=== PATIENT | male | born 1995 | race African-American/Black ===

== ENCOUNTER 2017-07-16 21:33 | Emergency (ER) | payer SELFPAY ==
[2017-07-16 23:08] VITALS: BP 000/00
== END 2017-07-16 23:06 | disposition left against medical advice (07) ==
LOC: ED 21:33
DX: R50.9 Fever, unspecified (principal); Z53.21 Procedure and treatment not carried out due to patient leaving prior to being seen by health care provider

== ENCOUNTER 2017-09-30 12:21 | Emergency (ER) | payer SELFPAY ==
[2017-09-30] MEDS ORDERED: Penicillin VK TAB* 250 MG PO ONE (14:04)
--- NOTE | 2017-09-30 14:04 | ED ---
Throat Pain/Nasal Congestion - HPI Summary HPI Summary: 22-year-old male presents with dental pain for the past day. He states he chipped the tooth many years ago. He states he intermittently has some pain there. He states area started to bleed this morning. He denies any pus from the area. He denies any fevers. She denies any chest pressures or shortness of breath. He denies any difficulty swallowing. States that pain is 10 out of 10. Has taken Tylenol ibuprofen without relief. He has a dentist appointment in 2 days. - History of Current Complaint Chief Complaint: EDDentalPain Time Seen by Provider: 09/30/17 13:38 - Allergies/Home Medications Allergies/Adverse Reactions: Allergies Allergy/AdvReac Type Severity Reaction Status Date / Time No Known Allergies Allergy Verified 09/30/17 12:28 PMH/Surg Hx/FS Hx/Imm Hx Endocrine/Hematology History: Denies: Hx Anticoagulant Therapy Cardiovascular History: Denies: Hx Myocardial Infarction Infectious Disease History: No Infectious Disease History: Denies: Traveled Outside the [place] in Last 30 Days - Family History Known Family History: Positive: Hypertension - Social History Alcohol Use: Occasionally Substance Use Type: Reports: None Smoking Status (MU): Unknown if Ever Smoked Review of Systems Negative: Fever Positive: Dental Pain Negative: Chest Pain Negative: Shortness Of Breath All Other Systems Reviewed And Are Negative: Yes Physical Exam Triage Information Reviewed: Yes Vital Signs On Initial Exam: Initial Vitals Temp Pulse Resp BP Pulse Ox 97.5 F 60 20 127/76 100 09/30/17 12:28 09/30/17 12:28 09/30/17 12:28 09/30/17 12:28 09/30/17 12:28 Vital Signs Reviewed: Yes Appearance: Positive: Well-Appearing Skin: Positive: Warm, Dry Head/Face: Positive: Normal Head/Face Inspection Eyes: Positive: Normal, EOMI, SABA, Conjunctiva Clear ENT: Positive: Normal ENT inspection, Pharynx normal, TMs normal Respiratory/Lung Sounds: Positive: Clear to Auscultation, Breath Sounds Present Cardiovascular: Positive: Normal, RRR Abdomen Description: Positive: Nontender, Soft Bowel Sounds: Positive: Present Musculoskeletal: Positive: Normal Neurological: Positive: Normal Psychiatric: Positive: Normal Diagnostics - Vital Signs Vital Signs Temp Pulse Resp BP Pulse Ox 09/30/17 12:28 97.5 F 60 20 127/76 100 - Laboratory Lab Statement: Any lab studies that have been ordered have been reviewed, and results considered in the medical decision making process. EENT Course/Dx - Course Course Of Treatment: 22-year-old male presents with dental pain for the past day. He states he chipped the tooth many years ago. He states he intermittently has some pain there. He states area started to bleed this morning. He denies any pus from the area. He denies any fevers. She denies any chest pressures or shortness of breath. He denies any difficulty swallowing. States that pain is 10 out of 10. Has taken Tylenol ibuprofen without relief. He has a dentist appointment in 2 days. on exam has what appears to be draining abscess at tooth 24. - Differential Diagnoses Differential Diagnoses: Dental Abscess, Dental Caries, Fractured Tooth - Diagnoses Provider Diagnoses: Dental abscess Discharge - Sign-Out/Discharge Documenting (check all that apply): Discharge - Discharge Plan Condition: Good Disposition: HOME Prescriptions: oxyCODONE/Acetamin 5/325 MG* [Percocet 5/325 TAB*] 1 tab PO Q6H PRN #10 tab MDD 4 PRN Reason: Pain Penicillin VK TAB* [Penicillin VK 250 mg Tab*] 500 mg PO QID #27 tab Patient Education Materials: Dental Abscess (ED) Referrals: No Primary Care Phys,NOPCP [Primary Care Provider] - [facility] [Outside] Additional Instructions: Take antibiotics: 4 times a day for 7 days, first dose given in ED Use ibuprofen every 6 hours and narcotic for break through pain at night Avoid hard, crunchy food until seen by dentist Follow up with dentist as soon as possible Return to ED if develop fever, shortness of breath, pain with eye movement or swelling around eye Establish care with primary care physician - Billing Disposition and Condition Condition: GOOD Disposition: HOME Images - Images Dental: 1 - abscess
[2017-09-30 14:29] VITALS: BP 128/79
== END 2017-09-30 14:25 | disposition home or self-care (01) ==
LOC: ED 12:21
DX: K04.7 Periapical abscess without sinus (principal)
CPT/HCPCS: 99281; A9270-GY

== ENCOUNTER 2018-05-29 13:31 | Emergency (ER) | payer OTHER ==
[2018-05-29 13:41] VITALS: BP 129/61
--- NOTE | 2018-05-29 14:03 | ED ---
GI/ HPI - HPI Summary HPI Summary: Pt is a 22 y/o male who presents to the ED c/o hematochezia. He states for the past month hes had blood dripping into the toilet with every BM. Pt states 2 weeks ago he also had abdominal pain, and now has diarrhea. He has been having up to 10 BMs per day. Pt has been told he has hemorrhoids, but he doesnt think he has them. He denies any current pain. Pt denies swallowing any foreign bodies. He denies any back pain or arthralgia. - History of Current Complaint Chief Complaint: EDGIBleed Time Seen by Provider: 05/29/18 13:48 Stated Complaint: BLOOD IN STOOL Hx Obtained From: Patient Onset/Duration: Started Weeks Ago - 1 month ago, Still Present Timing: Constant Pain Intensity: 0 Location of Pain: Diffuse Associated Signs and Symptoms: Positive: Bright Red Blood w/Stool, Diarrhea, Abdominal Pain Alleviating Factor(s): Nothing - Allergy/Home Medications Allergies/Adverse Reactions: Allergies Allergy/AdvReac Type Severity Reaction Status Date / Time No Known Allergies Allergy Verified 09/30/17 12:28 PMH/Surg Hx/FS Hx/Imm Hx Endocrine/Hematology History: Denies: Hx Anticoagulant Therapy Cardiovascular History: Denies: Hx Myocardial Infarction Infectious Disease History: No Infectious Disease History: Denies: Traveled Outside the [place] in Last 30 Days - Family History Known Family History: Positive: Hypertension - Social History Alcohol Use: None Alcohol Amount: incarcerated Hx Substance Use: No Substance Use Type: Reports: None Hx Tobacco Use: Yes Smoking Status (MU): Former Smoker Review of Systems Positive: Abdominal Pain, Diarrhea, Other - Bloody stool Negative: Arthralgia, Myalgia - back pain All Other Systems Reviewed And Are Negative: Yes Physical Exam - Summary Physical Exam Summary: Appearance: Well appearing, no pain distress Skin: warm, dry, reflects adequate perfusion Head/face: normal Eyes: EOMI, SABA ENT: mucous membranes moist, no ulcerations in mouth Neck: supple, non-tender Respiratory: CTA, breath sounds present Cardiovascular: RRR, pulses symmetrical Abdomen: non-tender, soft Bowel Sounds: present Musculoskeletal: normal, strength/ROM intact Neuro: normal, sensory motor intact, A&Ox3 Rectal: no gross blood, no ulcerations, no hemorrhoids Triage Information Reviewed: Yes Vital Signs On Initial Exam: Initial Vitals Temp Pulse Resp BP Pulse Ox 98.7 F 65 17 129/61 100 05/29/18 13:39 05/29/18 13:39 05/29/18 13:39 05/29/18 13:39 05/29/18 13:39 Vital Signs Reviewed: Yes Diagnostics - Vital Signs Vital Signs Temp Pulse Resp BP Pulse Ox 05/29/18 13:39 98.7 F 65 17 129/61 100 - Laboratory Result Diagrams: 05/29/18 14:15 05/29/18 14:16 Lab Statement: Any lab studies that have been ordered have been reviewed, and results considered in the medical decision making process. GIGU Course/Dx - Course Course Of Treatment: 22-year-old from the group home presents with several weeks of intermittent hematochezia. No melissa bleeding at this time. Blood counts are normal and CRP is nonelevated. Sedimentation rate also is normal. There is brown stool with barely perceptible small specks of blood which Hemoccult test was positive. Patient will need outpatient follow-up with GI. - Diagnoses Differential Diagnoses - Male: Other - Internal hemorrhoids, external hemorrhoids, anal fissure, inflammatory bowel disease, colitis, IBS, bleeding polyp Provider Diagnoses: Lower GI bleed Discharge - Sign-Out/Discharge Documenting (check all that apply): Patient Departure - Discharge - Discharge Plan Condition: Improved Disposition: LAW ENFORCEMENT/COURT Patient Education Materials: Rectal Bleeding (ED) Referrals: Markos Hull MD [Medical Doctor] - Additional Instructions: Have group home health services schedule prompt GI specialty consultation. Return with heavy bleeding, weakness, pale skin, worse, new symptoms or other concerns. - Billing Disposition and Condition Condition: IMPROVED Disposition: Law Enforcement/Court - Attestation Statements Document Initiated by Scribe: Yes Documenting Scribe: Yolanda Palacio Provider For Whom Scribe is Documenting (Include Credential): John Miller MD Scribe Attestation: Yolanda Gama scribed for John Miller MD on 05/29/18 at 1757. Scribe Documentation Reviewed: Yes Provider Attestation: The documentation as recorded by the [email or web address] accurately reflects the service I personally performed and the decisions made by me, John Miller MD
[2018-05-29 14:32] LABS: ABS Basophils 0 10^3/ul (0-0.2); ABS Eosinophils 0.1 10^3/ul (0-0.6); ABS Lymphocytes 1.5 10^3/ul (1.0-4.8); ABS Monocytes 0.6 10^3/ul (0-0.8); ABS Neutrophils 3.4 10^3/ul (1.5-7.7); ABS Nucleated RBC 0 10^3/ul; Eosinophil % 1.9 % (0-6); Hematocrit 44 % (42-52); Hemoglobin 14.7 g/dl (14.0-18.0); Lymphocyte % 26.1 % (25-47); Mean Corpuscular HGB Conc 34 g/dl (31-36); Mean Corpuscular Hemoglobin 31 pg (27-31); Mean Corpuscular Volume 91 fL (80-94); Mean Platelet Volume 7.6 fL (7.4-10.4); Nucleated Red Blood Cells % 0; Platelet Count 329 10^3/ul (150-450); Red Cell Distribution Width 13 % (10.5-15); White Blood Count 5.6 10^3/ul (3.5-10.8)
[2018-05-29 14:49] LABS: EGFR Non-African American 98.2 (>60)
== END 2018-05-29 15:09 ==
LOC: ED 13:31
DX: K92.2 Gastrointestinal hemorrhage, unspecified (principal); Z87.891 Personal history of nicotine dependence
CPT/HCPCS: 36415; 80053; 82272; 83605; 83690; 85025; 85652; 86140; 99282

== ENCOUNTER 2018-05-30 20:53 | Emergency (ER) | payer OTHER ==
--- NOTE | 2018-05-30 22:48 | ED ---
GI/ HPI - HPI Summary HPI Summary: Patient from [facility] complains of blood in stool and daily diarrhea 2 weeks. Patient also states he had abdominal pain for 2 weeks which resolved 2 weeks ago. Denies active abdominal pain here. Patient was seen here yesterday for same, states no one told him what was going on. Denies fever, cough, sore throat, CP, SOB, N/V, abdominal pain, change in urine, penile or testicular symptoms. Medical history is none. Abdominal surgical history is none. - History of Current Complaint Chief Complaint: EDAbdPain Time Seen by Provider: 05/30/18 22:30 Stated Complaint: ABD PAIN/RECTAL BLEEDING Hx Obtained From: Patient Onset/Duration: Started Weeks Ago Timing: Constant Current Severity: None Vaginal Bleeding Description: Bright Red Pain Intensity: 0 Aggravating Factor(s): Nothing Alleviating Factor(s): Nothing - Allergy/Home Medications Allergies/Adverse Reactions: Allergies Allergy/AdvReac Type Severity Reaction Status Date / Time No Known Allergies Allergy Verified 05/30/18 20:59 Home Medications: Home Medications NK [No Home Medications Reported] 05/30/18 [History Confirmed 05/30/18] PMH/Surg Hx/FS Hx/Imm Hx Endocrine/Hematology History: Denies: Hx Anticoagulant Therapy Cardiovascular History: Denies: Hx Cardiac Arrest, Hx Myocardial Infarction History: Denies: Hx Dialysis Neurological History: Denies: Hx CVA - Immunization History Immunizations Up to Date: Yes Infectious Disease History: No Infectious Disease History: Denies: Traveled Outside the [place] in Last 30 Days - Family History Known Family History: Positive: Hypertension - Social History Alcohol Use: None Alcohol Amount: incarcerated Hx Substance Use: No Substance Use Type: Reports: None Hx Tobacco Use: Yes Smoking Status (MU): Former Smoker Review of Systems Constitutional: Negative Eyes: Negative ENT: Negative Cardiovascular: Negative Respiratory: Negative Gastrointestinal: Negative Genitourinary: Negative Musculoskeletal: Negative Skin: Negative Neurological: Negative Psychological: Normal All Other Systems Reviewed And Are Negative: Yes Physical Exam Triage Information Reviewed: Yes Vital Signs On Initial Exam: Initial Vitals Temp Pulse Resp BP Pulse Ox 98.2 F 75 18 128/63 100 05/30/18 20:55 05/30/18 20:55 05/30/18 20:55 05/30/18 20:55 05/30/18 20:55 Vital Signs Reviewed: Yes Appearance: Positive: Well-Appearing Skin: Positive: Warm Head/Face: Positive: Normal Head/Face Inspection Eyes: Positive: Normal Neck: Positive: Supple Respiratory/Lung Sounds: Positive: Clear to Auscultation Cardiovascular: Positive: Normal Abdomen Description: Positive: Nontender Musculoskeletal: Positive: Normal Neurological: Positive: Normal Psychiatric: Positive: Normal AVPU Assessment: Alert - Throckmorton Coma Scale Best Eye Response: 4 - Spontaneous Best Motor Response: 6 - Obeys Commands Best Verbal Response: 5 - Oriented Coma Scale Total: 15 Diagnostics - Vital Signs Vital Signs Temp Pulse Resp BP Pulse Ox 05/30/18 20:55 98.2 F 75 18 128/63 100 - Laboratory Lab Statement: Any lab studies that have been ordered have been reviewed, and results considered in the medical decision making process. GIGU Course/Dx - Course Course Of Treatment: Patient evaluated here for same yesterday. H&H within normal range. Stool Hemoccult positive. Labs unremarkable. Labs and Hemoccult when not repeated today due to no significant change in symptoms per patient.. Denies inc in bleeding, pain. Physical exam unremarkable. Denies abdominal pain for past 2 weeks after initial 2 weeks. No pain with bowel movement. It was explained to patient that the only way to resolve his symptoms was with a colonoscopy performed by GI. Advised patient procedure could not be performed here in the ED, that outpatient follow-up was most appropriate. Patient states correction medical staff is trying to arrange appointment with GI for him. Patient understands and approves of plan. - Diagnoses Provider Diagnoses: Lower GI bleed Discharge - Sign-Out/Discharge Documenting (check all that apply): Patient Departure - Discharge Plan Condition: Stable Disposition: HOME Patient Education Materials: Gastrointestinal Bleeding (ED) Referrals: No Primary Care Phys,NOPCP [Primary Care Provider] - Additional Instructions: Follow-up with GI for colonoscopy for further evaluation of bleeding. Return to the ED for any increase in bleeding, pain or other concerning symptoms. - Billing Disposition and Condition Condition: STABLE Disposition: Home
[2018-05-30 23:00] VITALS: BP 123/74
== END 2018-05-30 22:59 | disposition home or self-care (01) ==
LOC: ED 20:53
DX: K92.2 Gastrointestinal hemorrhage, unspecified (principal); Z87.891 Personal history of nicotine dependence
CPT/HCPCS: 99282